=== PATIENT | female | born 1980 | race Caucasian/White ===

== ENCOUNTER 2018-05-15 14:06 | Emergency (ER) | payer SELFPAY | END 2018-05-15 14:48 | disposition home or self-care (01) | LOC: BURERS 14:06 | DX: J02.9 Acute pharyngitis, unspecified (principal); J04.0 Acute laryngitis | CPT/HCPCS: 99283 ==

== ENCOUNTER 2022-07-29 11:30 | Inpatient (IN) | payer OTHER ==
[2022-07-29] MEDS ORDERED: MEDROXYPROGESTERONE 150 MG/ML IM SCH (16:00)
[2022-07-29] MEDS ORDERED: Docusate 100 MG CAP PO PRN (16:34)
[2022-07-29] MEDS ORDERED: Ubrogepant [Ubrelvy] 50 MG Tablet PO PRN (16:51)
[2022-07-29] MEDS: HYDROcodone/Acetaminophen 10/325 mg Tablet PO PRN (16:51)
[2022-07-29] MEDS ORDERED: INHALE EA NARE PRN (17:00)
[2022-07-29] MEDS ORDERED: IPRATROPIUM 0.06% EA NARE SCH (17:00)
[2022-07-29] MEDS ORDERED: Senokot S 8.6-50 MG TAB PO PRN (17:00)
[2022-07-29] MEDS ORDERED: IPRATROPIUM 0.06% EA NARE PRN (17:00)
[2022-07-29] MEDS ORDERED: INHALE EA NARE SCH (17:00)
[2022-07-29] MEDS ORDERED: HYDROcodone/Acetaminophen 10/325 mg Tablet PO PRN ×2 (17:15)
[2022-07-29 17:37] LABS: SARS-CoV-2 NAA Rapid Test Not Detected (NotDetected)
[2022-07-29] MEDS: diphenhydrAMINE 25 MG CAP PO PRN (19:55)
[2022-07-29] MEDS: Topiramate 25 MG TAB PO SCH (20:02)
[2022-07-29] MEDS: Amitriptyline HCl 25 MG TAB PO SCH (20:02)
[2022-07-30] MEDS: Levothyroxine Sodium 25 MCG TAB PO SCH (05:16)
[2022-07-30] MEDS: Levothyroxine Sodium 112 MCG TAB PO SCH (05:16)
[2022-07-30] MEDS: HYDROcodone/Acetaminophen 10/325 mg Tablet PO PRN ×3 (05:18→20:03)
[2022-07-30] MEDS: diphenhydrAMINE 25 MG CAP PO PRN ×2 (05:19→14:42)
[2022-07-30] MEDS ORDERED: Non-Formulary Item 1 EACH (Esomeprazole Magnesium [Nexium] 40 MG Cap) PO SCH (08:00)
[2022-07-30] MEDS: Topiramate 25 MG TAB PO SCH ×2 (08:33→20:02)
[2022-07-30] MEDS: cefTRIAXone\\ROCEPHIN 2 GM in Sodium Chloride 0.9% 100 ML IVPB SCH (08:33)
[2022-07-30] MEDS: Furosemide 40 MG TAB PO SCH (08:34)
[2022-07-30] MEDS: predniSONE 20 MG TAB PO SCH ×2 (08:34→08:40)
[2022-07-30] MEDS: Trospium 20 MG TAB PO SCH ×2 (08:34→20:02)
[2022-07-30] MEDS: Azelastine 137 MCG/Spray 30 ML NS SCH (08:37)
[2022-07-30] MEDS ORDERED: CEFTRIAXONE SODIUM 2 GM IV SCH (09:00)
[2022-07-30] MEDS ORDERED: Meloxicam 7.5 MG TAB PO SCH (09:00)
[2022-07-30] MEDS: Triamcinolone 0.1% Cream 15 GM TUBE TOP PRN (11:52)
[2022-07-30] MEDS: Amitriptyline HCl 25 MG TAB PO SCH (20:02)
[2022-07-31] MEDS: Levothyroxine Sodium 112 MCG TAB PO SCH (05:31)
[2022-07-31] MEDS: Levothyroxine Sodium 25 MCG TAB PO SCH (05:31)
[2022-07-31] MEDS: HYDROcodone/Acetaminophen 10/325 mg Tablet PO PRN ×3 (05:31→20:44)
[2022-07-31] MEDS: diphenhydrAMINE 25 MG CAP PO PRN (05:32)
[2022-07-31] MEDS ORDERED: hydrOXYzine 25 MG TAB PO PRN (07:18)
[2022-07-31] MEDS: cefTRIAXone\\ROCEPHIN 2 GM in Sodium Chloride 0.9% 100 ML IVPB SCH (08:39)
[2022-07-31] MEDS: Azelastine 137 MCG/Spray 30 ML NS SCH (08:40)
[2022-07-31] MEDS: Trospium 20 MG TAB PO SCH ×2 (08:41→20:43)
[2022-07-31] MEDS: Furosemide 40 MG TAB PO SCH (08:41)
[2022-07-31] MEDS: Triamcinolone 0.1% Cream 15 GM TUBE TOP PRN (08:41)
[2022-07-31] MEDS: Topiramate 25 MG TAB PO SCH ×2 (08:41→20:43)
[2022-07-31] MEDS: Calcium Carbonate 500 MG ChewTAB PO PRN ×2 (15:20→18:09)
[2022-07-31] MEDS: Amitriptyline HCl 25 MG TAB PO SCH (20:43)
[2022-08-01 05:40] LABS: #Basophils 0.1 thou/uL (0.0-0.2); #Eosinphils 0.6 thou/uL (0.0-0.7); #Lymphocytes 3.3 thou/uL (1.20-3.40); #Monocytes 0.7 thou/uL (0.11-0.59); #Neutrophils 2.9 thou/uL (1.40-6.50); %Basophils 1.1 % (0.0-1.0); %Eosinophils 7.4 % (0.0-10.0); %Lymphocytes 43.4 % (21.0-51.0); %Neutrophils 39.1 % (42.0-75.0); Hemoglobin 11.6 g/dL (12.0-16.0); Mean Corpuscular HGB CONC 31.7 g/dL (32.0-36.0); Mean Corpuscular Volume 88.3 fl (78.0-98.0); Mean Platelet Volume 6.3 fL (7.4-10.4); Platelet Count 296 10x3/uL (130-400); RBC Distribution Width 14.8 % (11.5-14.5); Red Blood Cell (RBC) Count 4.13 mill/uL (4.20-5.40); White Blood Cell (WBC) Count 7.5 10x3/uL (4.8-10.8)
[2022-08-01] MEDS: Levothyroxine Sodium 25 MCG TAB PO SCH (05:42)
[2022-08-01] MEDS: Levothyroxine Sodium 112 MCG TAB PO SCH (05:43)
[2022-08-01 05:46] LABS: Anion Gap 16 mmol/L (10-20); BUN (Urea Nitrogen) 14 mg/dL (7.0-18.7); Calc. Creatinine Clearance 150 mL/min (70-130); Calcium 9.3 mg/dL (7.8-10.44); Carbon Dioxide 18 mmol/L (22-29); Chloride 109 mmol/L (98-107); Estimated GFR 88; Glucose 77 mg/dL (70-105); Potassium 3.9 mmol/L (3.5-5.1); Sodium 139 mmol/L (136-145)
[2022-08-01] MEDS: Furosemide 40 MG TAB PO SCH (08:28)
[2022-08-01] MEDS: Trospium 20 MG TAB PO SCH ×2 (08:28→20:22)
[2022-08-01] MEDS: Topiramate 25 MG TAB PO SCH ×2 (08:28→20:22)
[2022-08-01] MEDS: HYDROcodone/Acetaminophen 10/325 mg Tablet PO PRN ×3 (08:28→20:29)
[2022-08-01] MEDS: Azelastine 137 MCG/Spray 30 ML NS SCH (08:29)
[2022-08-01] MEDS: Triamcinolone 0.1% Cream 15 GM TUBE TOP PRN (08:30)
[2022-08-01] MEDS: cefTRIAXone\\ROCEPHIN 2 GM in Sodium Chloride 0.9% 100 ML IVPB SCH (09:06)
[2022-08-01] MEDS ORDERED: Non-Formulary Item 1 EACH (Cetirizine Hcl [All Day Allergy Relief] 10 MG Capsule) PO PRN (16:05)
[2022-08-01] MEDS: Calcium Carbonate 500 MG ChewTAB PO PRN (18:33)
[2022-08-01] MEDS: Amitriptyline HCl 25 MG TAB PO SCH (20:22)
[2022-08-02] MEDS: Levothyroxine Sodium 25 MCG TAB PO SCH (05:38)
[2022-08-02] MEDS: Levothyroxine Sodium 112 MCG TAB PO SCH (05:38)
[2022-08-02] MEDS: traMADol HCl 50 MG TAB PO PRN (05:45)
[2022-08-02] MEDS: cefTRIAXone\\ROCEPHIN 2 GM in Sodium Chloride 0.9% 100 ML IVPB SCH (08:53)
[2022-08-02] MEDS: Topiramate 25 MG TAB PO SCH ×2 (08:54→20:09)
[2022-08-02] MEDS: Furosemide 40 MG TAB PO SCH (08:54)
[2022-08-02] MEDS: Trospium 20 MG TAB PO SCH ×2 (08:54→20:10)
[2022-08-02] MEDS ORDERED: Non-Formulary Item 1 EACH (Multivit-Min/Iron/Folic/Lutein [Centrum Silver Women] 1 TABLET PO SCH (09:00)
[2022-08-02] MEDS ORDERED: [UNRECOGNIZED DRUG - MIXTURE] PO SCH (09:00)
[2022-08-02] MEDS: Triamcinolone 0.1% Cream 15 GM TUBE TOP PRN (09:14)
[2022-08-02] MEDS: Azelastine 137 MCG/Spray 30 ML NS SCH (09:14)
[2022-08-02] MEDS: HYDROcodone/Acetaminophen 10/325 mg Tablet PO PRN ×2 (09:32→16:07)
[2022-08-02] MEDS ORDERED: Loratadine 10 MG TAB PO PRN (10:14)
[2022-08-02] MEDS: ECHINACEA PO SCH ×2 (14:48→20:09)
[2022-08-02] MEDS: GOLDENSEAL PO SCH ×2 (14:48→20:09)
[2022-08-02] MEDS: diphenhydrAMINE 25 MG CAP PO PRN (17:46)
[2022-08-02] MEDS: Amitriptyline HCl 25 MG TAB PO SCH (20:15)
[2022-08-03] MEDS: Levothyroxine Sodium 25 MCG TAB PO SCH (05:42)
[2022-08-03] MEDS: Levothyroxine Sodium 112 MCG TAB PO SCH (05:42)
[2022-08-03] MEDS: traMADol HCl 50 MG TAB PO PRN (06:04)
[2022-08-03] MEDS: HYDROcodone/Acetaminophen 10/325 mg Tablet PO PRN ×3 (08:45→20:43)
[2022-08-03] MEDS: Calcium Carbonate 500 MG ChewTAB PO PRN ×2 (08:48→20:42)
[2022-08-03] MEDS ORDERED: PATIENT'S HOME MEDICATION EA NARE SCH (09:00)
[2022-08-03] MEDS: Trospium 20 MG TAB PO SCH ×2 (10:04→20:43)
[2022-08-03] MEDS: Multivitamin W/ Minerals 1 TAB PO SCH (10:04)
[2022-08-03] MEDS: Furosemide 40 MG TAB PO SCH (10:04)
[2022-08-03] MEDS: Topiramate 25 MG TAB PO SCH ×2 (10:05→20:43)
[2022-08-03] MEDS: cefTRIAXone\\ROCEPHIN 2 GM in Sodium Chloride 0.9% 100 ML IVPB SCH (10:05)
[2022-08-03] MEDS: CITRACAL CALCIUM PO SCH (10:07)
[2022-08-03] MEDS: [UNRECOGNIZED DRUG - OTHER] PO SCH (10:07)
[2022-08-03] MEDS: BIOTIN PO SCH (10:08)
[2022-08-03] MEDS: HAIR SKIN AND NAILS PO SCH (10:08)
[2022-08-03] MEDS: [UNRECOGNIZED DRUG - OTHER] PO SCH (10:08)
[2022-08-03] MEDS: CYANOCOBALAMIN PO SCH (10:08)
[2022-08-03] MEDS: TART CHERRY EXTRACT 1200 MG PO SCH (10:09)
[2022-08-03] MEDS: ECHINACEA PO SCH ×3 (10:10→20:43)
[2022-08-03] MEDS: GOLDENSEAL PO SCH ×3 (10:10→20:43)
[2022-08-03] MEDS: Azelastine 137 MCG/Spray 30 ML EA NARE SCH (10:11)
[2022-08-03] MEDS: diphenhydrAMINE 25 MG CAP PO PRN (11:40)
[2022-08-03] MEDS: Amitriptyline HCl 25 MG TAB PO SCH (20:43)
[2022-08-04] MEDS: Levothyroxine Sodium 112 MCG TAB PO SCH (05:45)
[2022-08-04] MEDS: Levothyroxine Sodium 25 MCG TAB PO SCH (05:46)
[2022-08-04] MEDS: cefTRIAXone\\ROCEPHIN 2 GM in Sodium Chloride 0.9% 100 ML IVPB SCH (08:19)
[2022-08-04] MEDS: Trospium 20 MG TAB PO SCH ×2 (08:20→21:35)
[2022-08-04] MEDS: Topiramate 25 MG TAB PO SCH ×2 (08:20→21:35)
[2022-08-04] MEDS: Multivitamin W/ Minerals 1 TAB PO SCH (08:21)
[2022-08-04] MEDS: Furosemide 40 MG TAB PO SCH (08:21)
[2022-08-04] MEDS: HAIR SKIN AND NAILS PO SCH (08:29)
[2022-08-04] MEDS: BIOTIN PO SCH (08:29)
[2022-08-04] MEDS: HYDROcodone/Acetaminophen 10/325 mg Tablet PO PRN ×3 (08:35→22:00)
[2022-08-04] MEDS: CITRACAL CALCIUM PO SCH (08:41)
[2022-08-04] MEDS: [UNRECOGNIZED DRUG - OTHER] PO SCH (08:41)
[2022-08-04] MEDS: Azelastine 137 MCG/Spray 30 ML EA NARE SCH (08:42)
[2022-08-04] MEDS: TART CHERRY EXTRACT 1200 MG PO SCH (08:44)
[2022-08-04] MEDS: [UNRECOGNIZED DRUG - OTHER] PO SCH (08:44)
[2022-08-04] MEDS: GOLDENSEAL PO SCH ×3 (08:44→21:36)
[2022-08-04] MEDS: CYANOCOBALAMIN PO SCH (08:44)
[2022-08-04] MEDS: ECHINACEA PO SCH ×3 (08:44→21:36)
[2022-08-04] MEDS: traMADol HCl 50 MG TAB PO PRN (12:48)
[2022-08-04] MEDS: Triamcinolone 0.1% Cream 15 GM TUBE TOP PRN (12:52)
[2022-08-04] MEDS: diphenhydrAMINE 25 MG CAP PO PRN (15:55)
[2022-08-04] MEDS: Amitriptyline HCl 25 MG TAB PO SCH (21:35)
[2022-08-05] MEDS: Levothyroxine Sodium 112 MCG TAB PO SCH (05:15)
[2022-08-05] MEDS: Levothyroxine Sodium 25 MCG TAB PO SCH (05:15)
[2022-08-05] MEDS: HYDROcodone/Acetaminophen 10/325 mg Tablet PO PRN ×3 (05:26→19:41)
[2022-08-05] MEDS: cefTRIAXone\\ROCEPHIN 2 GM in Sodium Chloride 0.9% 100 ML IVPB SCH (09:10)
[2022-08-05] MEDS: Topiramate 25 MG TAB PO SCH ×2 (09:11→21:43)
[2022-08-05] MEDS: Furosemide 40 MG TAB PO SCH (09:12)
[2022-08-05] MEDS: Trospium 20 MG TAB PO SCH ×2 (09:12→21:44)
[2022-08-05] MEDS: Multivitamin W/ Minerals 1 TAB PO SCH (09:12)
[2022-08-05] MEDS: Azelastine 137 MCG/Spray 30 ML EA NARE SCH (09:16)
[2022-08-05] MEDS: CITRACAL CALCIUM PO SCH (09:18)
[2022-08-05] MEDS: [UNRECOGNIZED DRUG - OTHER] PO SCH (09:18)
[2022-08-05] MEDS: BIOTIN PO SCH (09:19)
[2022-08-05] MEDS: HAIR SKIN AND NAILS PO SCH (09:19)
[2022-08-05] MEDS: TART CHERRY EXTRACT 1200 MG PO SCH (09:19)
[2022-08-05] MEDS: CYANOCOBALAMIN PO SCH (09:20)
[2022-08-05] MEDS: [UNRECOGNIZED DRUG - OTHER] PO SCH (09:20)
[2022-08-05] MEDS: ECHINACEA PO SCH ×3 (09:21→23:04)
[2022-08-05] MEDS: GOLDENSEAL PO SCH ×3 (09:21→23:04)
[2022-08-05] MEDS: Triamcinolone 0.1% Cream 15 GM TUBE TOP PRN (09:22)
[2022-08-05] MEDS: traMADol HCl 50 MG TAB PO PRN (10:36)
[2022-08-05] MEDS: Calcium Carbonate 500 MG ChewTAB PO PRN (19:41)
[2022-08-05] MEDS: Amitriptyline HCl 25 MG TAB PO SCH (21:43)
[2022-08-06] MEDS: Levothyroxine Sodium 112 MCG TAB PO SCH (05:40)
[2022-08-06] MEDS: Levothyroxine Sodium 25 MCG TAB PO SCH (05:40)
[2022-08-06] MEDS: HYDROcodone/Acetaminophen 10/325 mg Tablet PO PRN ×2 (05:42→16:45)
[2022-08-06] MEDS: cefTRIAXone\\ROCEPHIN 2 GM in Sodium Chloride 0.9% 100 ML IVPB SCH (09:35)
[2022-08-06] MEDS: Triamcinolone 0.1% Cream 15 GM TUBE TOP PRN (09:36)
[2022-08-06] MEDS: HAIR SKIN AND NAILS PO SCH (09:37)
[2022-08-06] MEDS: [UNRECOGNIZED DRUG - OTHER] PO SCH (09:37)
[2022-08-06] MEDS: Azelastine 137 MCG/Spray 30 ML EA NARE SCH (09:37)
[2022-08-06] MEDS: CITRACAL CALCIUM PO SCH (09:37)
[2022-08-06] MEDS: BIOTIN PO SCH (09:37)
[2022-08-06] MEDS: [UNRECOGNIZED DRUG - OTHER] PO SCH (09:38)
[2022-08-06] MEDS: TART CHERRY EXTRACT 1200 MG PO SCH (09:38)
[2022-08-06] MEDS: CYANOCOBALAMIN PO SCH (09:38)
[2022-08-06] MEDS: Trospium 20 MG TAB PO SCH ×2 (09:41→20:57)
[2022-08-06] MEDS: Topiramate 25 MG TAB PO SCH ×2 (09:41→20:57)
[2022-08-06] MEDS: Furosemide 40 MG TAB PO SCH (09:42)
[2022-08-06] MEDS: Multivitamin W/ Minerals 1 TAB PO SCH (09:42)
[2022-08-06] MEDS: GOLDENSEAL PO SCH ×3 (09:46→20:57)
[2022-08-06] MEDS: ECHINACEA PO SCH ×3 (09:46→20:57)
[2022-08-06] MEDS: Prochlorperazine Maleate 5 MG TAB PO PRN (10:02)
[2022-08-06] MEDS: Calcium Carbonate 500 MG ChewTAB PO PRN (19:21)
[2022-08-06] MEDS: Amitriptyline HCl 25 MG TAB PO SCH (20:57)
[2022-08-06] MEDS: traMADol HCl 50 MG TAB PO PRN (21:34)
[2022-08-07] MEDS: Levothyroxine Sodium 25 MCG TAB PO SCH (06:41)
[2022-08-07] MEDS: Levothyroxine Sodium 112 MCG TAB PO SCH (06:42)
[2022-08-07] MEDS: HYDROcodone/Acetaminophen 10/325 mg Tablet PO PRN ×3 (06:44→21:08)
[2022-08-07] MEDS: cefTRIAXone\\ROCEPHIN 2 GM in Sodium Chloride 0.9% 100 ML IVPB SCH (09:29)
[2022-08-07] MEDS: Trospium 20 MG TAB PO SCH ×2 (09:31→21:01)
[2022-08-07] MEDS: Topiramate 25 MG TAB PO SCH ×2 (09:31→21:01)
[2022-08-07] MEDS: Furosemide 40 MG TAB PO SCH (09:31)
[2022-08-07] MEDS: Multivitamin W/ Minerals 1 TAB PO SCH (09:31)
[2022-08-07] MEDS: Triamcinolone 0.1% Cream 15 GM TUBE TOP PRN (09:36)
[2022-08-07] MEDS: BIOTIN PO SCH (09:36)
[2022-08-07] MEDS: HAIR SKIN AND NAILS PO SCH (09:36)
[2022-08-07] MEDS: TART CHERRY EXTRACT 1200 MG PO SCH (09:36)
[2022-08-07] MEDS: Azelastine 137 MCG/Spray 30 ML EA NARE SCH (09:36)
[2022-08-07] MEDS: [UNRECOGNIZED DRUG - OTHER] PO SCH (09:36)
[2022-08-07] MEDS: CITRACAL CALCIUM PO SCH (09:36)
[2022-08-07] MEDS: [UNRECOGNIZED DRUG - OTHER] PO SCH (09:36)
[2022-08-07] MEDS: CYANOCOBALAMIN PO SCH (09:36)
[2022-08-07] MEDS: ECHINACEA PO SCH ×3 (09:37→21:00)
[2022-08-07] MEDS: GOLDENSEAL PO SCH ×3 (09:37→21:00)
[2022-08-07] MEDS: traMADol HCl 50 MG TAB PO PRN (18:37)
[2022-08-07] MEDS: Amitriptyline HCl 25 MG TAB PO SCH (21:00)
[2022-08-08] MEDS: Levothyroxine Sodium 25 MCG TAB PO SCH (05:15)
[2022-08-08] MEDS: Levothyroxine Sodium 112 MCG TAB PO SCH (05:15)
[2022-08-08] MEDS: HYDROcodone/Acetaminophen 10/325 mg Tablet PO PRN ×3 (05:42→18:01)
[2022-08-08 05:56] LABS: #Basophils 0.1 thou/uL (0.0-0.2); #Eosinphils 0.7 thou/uL (0.0-0.7); #Monocytes 0.6 thou/uL (0.11-0.59); #Neutrophils 3.5 thou/uL (1.40-6.50); %Basophils 1.1 % (0.0-1.0); %Eosinophils 8.8 % (0.0-10.0); %Lymphocytes 38.6 % (21.0-51.0); %Monocytes 7.3 % (0.0-10.0); %Neutrophils 44.1 % (42.0-75.0); Hemoglobin 10.8 g/dL (12.0-16.0); Mean Corpuscular HGB CONC 33.2 g/dL (32.0-36.0); Mean Corpuscular Hemoglobin 28.6 pg (27.0-31.0); Mean Corpuscular Volume 86.1 fl (78.0-98.0); Mean Platelet Volume 6.3 fL (7.4-10.4); Platelet Count 340 10x3/uL (130-400); RBC Distribution Width 15.4 % (11.5-14.5); Red Blood Cell (RBC) Count 3.78 mill/uL (4.20-5.40); White Blood Cell (WBC) Count 7.8 10x3/uL (4.8-10.8)
[2022-08-08 06:11] LABS: Anion Gap 12 mmol/L (10-20); BUN (Urea Nitrogen) 13 mg/dL (7.0-18.7); CRP (Inflammatory) 1.81 mg/dL (= or < 0.5); Calc. Creatinine Clearance 152 mL/min (70-130); Calcium 8.7 mg/dL (7.8-10.44); Carbon Dioxide 23 mmol/L (22-29); Chloride 109 mmol/L (98-107); Estimated GFR 90; Glucose 97 mg/dL (70-105); Sodium 141 mmol/L (136-145)
[2022-08-08] MEDS: diphenhydrAMINE 25 MG CAP PO PRN (06:22)
[2022-08-08] MEDS: Furosemide 40 MG TAB PO SCH (08:14)
[2022-08-08] MEDS: Potassium Chloride 20 MEQ TAB PO SCH (08:14)
[2022-08-08] MEDS: Multivitamin W/ Minerals 1 TAB PO SCH (08:14)
[2022-08-08] MEDS: Trospium 20 MG TAB PO SCH ×2 (08:15→21:03)
[2022-08-08] MEDS: Topiramate 25 MG TAB PO SCH ×2 (08:15→21:03)
[2022-08-08] MEDS: cefTRIAXone\\ROCEPHIN 2 GM in Sodium Chloride 0.9% 100 ML IVPB SCH (08:15)
[2022-08-08] MEDS: Azelastine 137 MCG/Spray 30 ML EA NARE SCH (08:16)
[2022-08-08] MEDS: CYANOCOBALAMIN PO SCH (08:17)
[2022-08-08] MEDS: [UNRECOGNIZED DRUG - OTHER] PO SCH (08:17)
[2022-08-08] MEDS: CITRACAL CALCIUM PO SCH (08:18)
[2022-08-08] MEDS: [UNRECOGNIZED DRUG - OTHER] PO SCH (08:18)
[2022-08-08] MEDS: BIOTIN PO SCH (08:19)
[2022-08-08] MEDS: ECHINACEA PO SCH ×3 (08:19→21:37)
[2022-08-08] MEDS: GOLDENSEAL PO SCH ×3 (08:19→21:37)
[2022-08-08] MEDS: HAIR SKIN AND NAILS PO SCH (08:19)
[2022-08-08] MEDS: TART CHERRY EXTRACT 1200 MG PO SCH (08:20)
[2022-08-08] MEDS: Calcium Carbonate 500 MG ChewTAB PO PRN (20:03)
[2022-08-08] MEDS: traMADol HCl 50 MG TAB PO PRN (21:02)
[2022-08-08] MEDS: Amitriptyline HCl 25 MG TAB PO SCH (21:04)
[2022-08-09] MEDS: Levothyroxine Sodium 112 MCG TAB PO SCH (05:01)
[2022-08-09] MEDS: Levothyroxine Sodium 25 MCG TAB PO SCH (05:01)
[2022-08-09] MEDS: HYDROcodone/Acetaminophen 10/325 mg Tablet PO PRN ×3 (05:05→21:44)
[2022-08-09] MEDS: Topiramate 25 MG TAB PO SCH ×2 (08:56→21:46)
[2022-08-09] MEDS: Multivitamin W/ Minerals 1 TAB PO SCH (08:56)
[2022-08-09] MEDS: Furosemide 40 MG TAB PO SCH (08:56)
[2022-08-09] MEDS: Potassium Chloride 20 MEQ TAB PO SCH (08:56)
[2022-08-09] MEDS: Triple Antibiotic Oint 1 GM Packet TOP SCH (08:56)
[2022-08-09] MEDS: Trospium 20 MG TAB PO SCH ×2 (08:57→21:45)
[2022-08-09] MEDS: [UNRECOGNIZED DRUG - OTHER] PO SCH (08:58)
[2022-08-09] MEDS: CITRACAL CALCIUM PO SCH (08:58)
[2022-08-09] MEDS: Azelastine 137 MCG/Spray 30 ML EA NARE SCH (08:59)
[2022-08-09] MEDS: GOLDENSEAL PO SCH ×3 (08:59→21:55)
[2022-08-09] MEDS: ECHINACEA PO SCH ×3 (08:59→21:55)
[2022-08-09] MEDS: BIOTIN PO SCH (09:00)
[2022-08-09] MEDS: HAIR SKIN AND NAILS PO SCH (09:00)
[2022-08-09] MEDS: TART CHERRY EXTRACT 1200 MG PO SCH (09:00)
[2022-08-09] MEDS: [UNRECOGNIZED DRUG - OTHER] PO SCH (09:01)
[2022-08-09] MEDS: CYANOCOBALAMIN PO SCH (09:01)
[2022-08-09] MEDS: cefTRIAXone\\ROCEPHIN 2 GM in Sodium Chloride 0.9% 100 ML IVPB SCH (09:05)
[2022-08-09] MEDS: traMADol HCl 50 MG TAB PO PRN (17:55)
[2022-08-09] MEDS: Calcium Carbonate 500 MG ChewTAB PO PRN (21:44)
[2022-08-09] MEDS: Amitriptyline HCl 25 MG TAB PO SCH (21:46)
[2022-08-10] MEDS: Levothyroxine Sodium 112 MCG TAB PO SCH (05:47)
[2022-08-10] MEDS: Levothyroxine Sodium 25 MCG TAB PO SCH (05:47)
[2022-08-10] MEDS: Triple Antibiotic Oint 1 GM Packet TOP SCH (09:00)
[2022-08-10] MEDS ORDERED: Docusate 100 MG CAP PO PRN (09:08)
[2022-08-10] MEDS: TART CHERRY EXTRACT 1200 MG PO SCH (09:14)
[2022-08-10] MEDS: BIOTIN PO SCH (09:14)
[2022-08-10] MEDS: CYANOCOBALAMIN PO SCH (09:14)
[2022-08-10] MEDS: [UNRECOGNIZED DRUG - OTHER] PO SCH (09:14)
[2022-08-10] MEDS: ECHINACEA PO SCH ×3 (09:14→20:22)
[2022-08-10] MEDS: HAIR SKIN AND NAILS PO SCH (09:14)
[2022-08-10] MEDS: [UNRECOGNIZED DRUG - OTHER] PO SCH (09:14)
[2022-08-10] MEDS: CITRACAL CALCIUM PO SCH (09:14)
[2022-08-10] MEDS: GOLDENSEAL PO SCH ×3 (09:14→20:22)
[2022-08-10] MEDS: Azelastine 137 MCG/Spray 30 ML EA NARE SCH (09:15)
[2022-08-10] MEDS: Furosemide 40 MG TAB PO SCH (09:16)
[2022-08-10] MEDS: Topiramate 25 MG TAB PO SCH ×2 (09:16→20:23)
[2022-08-10] MEDS: Potassium Chloride 20 MEQ TAB PO SCH (09:16)
[2022-08-10] MEDS: Multivitamin W/ Minerals 1 TAB PO SCH (09:16)
[2022-08-10] MEDS: Trospium 20 MG TAB PO SCH ×2 (09:16→20:23)
[2022-08-10] MEDS: cefTRIAXone\\ROCEPHIN 2 GM in Sodium Chloride 0.9% 100 ML IVPB SCH (09:17)
[2022-08-10] MEDS: HYDROcodone/Acetaminophen 10/325 mg Tablet PO PRN ×2 (10:16→20:23)
[2022-08-10] MEDS: Calcium Carbonate 500 MG ChewTAB PO PRN (10:17)
[2022-08-10] MEDS: Amitriptyline HCl 25 MG TAB PO SCH (20:23)
[2022-08-11] MEDS: Levothyroxine Sodium 112 MCG TAB PO SCH (05:14)
[2022-08-11] MEDS: Levothyroxine Sodium 25 MCG TAB PO SCH (05:14)
[2022-08-11] MEDS: HYDROcodone/Acetaminophen 10/325 mg Tablet PO PRN ×3 (05:20→20:38)
[2022-08-11] MEDS: Azelastine 137 MCG/Spray 30 ML EA NARE SCH (08:41)
[2022-08-11] MEDS: BIOTIN PO SCH (08:41)
[2022-08-11] MEDS: [UNRECOGNIZED DRUG - OTHER] PO SCH (08:41)
[2022-08-11] MEDS: CITRACAL CALCIUM PO SCH (08:41)
[2022-08-11] MEDS: HAIR SKIN AND NAILS PO SCH (08:41)
[2022-08-11] MEDS: [UNRECOGNIZED DRUG - OTHER] PO SCH (08:42)
[2022-08-11] MEDS: GOLDENSEAL PO SCH ×3 (08:42→20:43)
[2022-08-11] MEDS: ECHINACEA PO SCH ×3 (08:42→20:43)
[2022-08-11] MEDS: CYANOCOBALAMIN PO SCH (08:42)
[2022-08-11] MEDS: TART CHERRY EXTRACT 1200 MG PO SCH (08:42)
[2022-08-11] MEDS: Topiramate 25 MG TAB PO SCH ×2 (08:43→20:38)
[2022-08-11] MEDS: Multivitamin W/ Minerals 1 TAB PO SCH (08:44)
[2022-08-11] MEDS: Trospium 20 MG TAB PO SCH ×2 (08:44→20:38)
[2022-08-11] MEDS: Furosemide 40 MG TAB PO SCH (08:44)
[2022-08-11] MEDS: Potassium Chloride 20 MEQ TAB PO SCH (08:44)
[2022-08-11] MEDS: Triple Antibiotic Oint 1 GM Packet TOP SCH (08:44)
[2022-08-11] MEDS: cefTRIAXone\\ROCEPHIN 2 GM in Sodium Chloride 0.9% 100 ML IVPB SCH (08:45)
[2022-08-11] MEDS: Prochlorperazine Maleate 5 MG TAB PO PRN (17:49)
[2022-08-11] MEDS: Amitriptyline HCl 25 MG TAB PO SCH (20:38)
[2022-08-12] MEDS: Levothyroxine Sodium 25 MCG TAB PO SCH (05:25)
[2022-08-12] MEDS: Levothyroxine Sodium 112 MCG TAB PO SCH (05:25)
[2022-08-12] MEDS: HYDROcodone/Acetaminophen 10/325 mg Tablet PO PRN ×3 (05:25→20:16)
[2022-08-12] MEDS: Potassium Chloride 20 MEQ TAB PO SCH (08:54)
[2022-08-12] MEDS: Topiramate 25 MG TAB PO SCH ×2 (08:55→20:15)
[2022-08-12] MEDS: Multivitamin W/ Minerals 1 TAB PO SCH (08:56)
[2022-08-12] MEDS: Trospium 20 MG TAB PO SCH ×2 (08:56→20:15)
[2022-08-12] MEDS: Furosemide 40 MG TAB PO SCH (08:56)
[2022-08-12] MEDS: ECHINACEA PO SCH ×3 (08:58→20:15)
[2022-08-12] MEDS: BIOTIN PO SCH (08:58)
[2022-08-12] MEDS: TART CHERRY EXTRACT 1200 MG PO SCH (08:58)
[2022-08-12] MEDS: GOLDENSEAL PO SCH ×3 (08:58→20:15)
[2022-08-12] MEDS: HAIR SKIN AND NAILS PO SCH (08:58)
[2022-08-12] MEDS: Azelastine 137 MCG/Spray 30 ML EA NARE SCH (08:59)
[2022-08-12] MEDS: CITRACAL CALCIUM PO SCH (08:59)
[2022-08-12] MEDS: [UNRECOGNIZED DRUG - OTHER] PO SCH (08:59)
[2022-08-12] MEDS: [UNRECOGNIZED DRUG - OTHER] PO SCH (08:59)
[2022-08-12] MEDS: CYANOCOBALAMIN PO SCH (08:59)
[2022-08-12] MEDS: cefTRIAXone\\ROCEPHIN 2 GM in Sodium Chloride 0.9% 100 ML IVPB SCH (09:00)
[2022-08-12] MEDS: Triple Antibiotic Oint 1 GM Packet TOP SCH (09:01)
[2022-08-12] MEDS: Triamcinolone 0.1% Cream 15 GM TUBE TOP PRN (16:48)
[2022-08-12] MEDS: Amitriptyline HCl 25 MG TAB PO SCH (20:15)
[2022-08-13] MEDS: Levothyroxine Sodium 112 MCG TAB PO SCH (05:54)
[2022-08-13] MEDS: Levothyroxine Sodium 25 MCG TAB PO SCH (05:54)
[2022-08-13] MEDS: ECHINACEA PO SCH ×3 (08:14→20:26)
[2022-08-13] MEDS: GOLDENSEAL PO SCH ×3 (08:14→20:26)
[2022-08-13] MEDS: TART CHERRY EXTRACT 1200 MG PO SCH (08:15)
[2022-08-13] MEDS: CITRACAL CALCIUM PO SCH (08:15)
[2022-08-13] MEDS: [UNRECOGNIZED DRUG - OTHER] PO SCH (08:15)
[2022-08-13] MEDS: BIOTIN PO SCH (08:16)
[2022-08-13] MEDS: HAIR SKIN AND NAILS PO SCH (08:16)
[2022-08-13] MEDS: CYANOCOBALAMIN PO SCH (08:16)
[2022-08-13] MEDS: [UNRECOGNIZED DRUG - OTHER] PO SCH (08:16)
[2022-08-13] MEDS: Azelastine 137 MCG/Spray 30 ML EA NARE SCH (08:17)
[2022-08-13] MEDS: Trospium 20 MG TAB PO SCH ×2 (08:19→20:25)
[2022-08-13] MEDS: Multivitamin W/ Minerals 1 TAB PO SCH (08:19)
[2022-08-13] MEDS: Furosemide 40 MG TAB PO SCH (08:19)
[2022-08-13] MEDS: Potassium Chloride 20 MEQ TAB PO SCH (08:19)
[2022-08-13] MEDS: Topiramate 25 MG TAB PO SCH ×2 (08:19→20:25)
[2022-08-13] MEDS: Triple Antibiotic Oint 1 GM Packet TOP SCH (08:19)
[2022-08-13] MEDS: cefTRIAXone\\ROCEPHIN 2 GM in Sodium Chloride 0.9% 100 ML IVPB SCH (08:20)
[2022-08-13] MEDS: HYDROcodone/Acetaminophen 10/325 mg Tablet PO PRN ×3 (08:29→23:35)
[2022-08-13] MEDS ORDERED: Lidocaine Viscous Sol 2% 15 ml UD Cup SSP PRN (17:30)
[2022-08-13] MEDS: Amitriptyline HCl 25 MG TAB PO SCH (20:26)
[2022-08-14] MEDS: Levothyroxine Sodium 112 MCG TAB PO SCH (05:40)
[2022-08-14] MEDS: Levothyroxine Sodium 25 MCG TAB PO SCH (05:40)
[2022-08-14] MEDS: TART CHERRY EXTRACT 1200 MG PO SCH (08:55)
[2022-08-14] MEDS: HAIR SKIN AND NAILS PO SCH (08:55)
[2022-08-14] MEDS: CYANOCOBALAMIN PO SCH (08:55)
[2022-08-14] MEDS: [UNRECOGNIZED DRUG - OTHER] PO SCH (08:55)
[2022-08-14] MEDS: BIOTIN PO SCH (08:55)
[2022-08-14] MEDS: [UNRECOGNIZED DRUG - OTHER] PO SCH (08:56)
[2022-08-14] MEDS: CITRACAL CALCIUM PO SCH (08:56)
[2022-08-14] MEDS: ECHINACEA PO SCH ×3 (08:56→19:49)
[2022-08-14] MEDS: GOLDENSEAL PO SCH ×3 (08:56→19:49)
[2022-08-14] MEDS: Azelastine 137 MCG/Spray 30 ML EA NARE SCH (08:57)
[2022-08-14] MEDS: Potassium Chloride 20 MEQ TAB PO SCH (08:57)
[2022-08-14] MEDS: Trospium 20 MG TAB PO SCH ×2 (08:58→20:01)
[2022-08-14] MEDS: Triple Antibiotic Oint 1 GM Packet TOP SCH (08:58)
[2022-08-14] MEDS: Multivitamin W/ Minerals 1 TAB PO SCH (08:58)
[2022-08-14] MEDS: Topiramate 25 MG TAB PO SCH ×2 (08:58→19:48)
[2022-08-14] MEDS: Furosemide 40 MG TAB PO SCH (08:58)
[2022-08-14] MEDS: cefTRIAXone\\ROCEPHIN 2 GM in Sodium Chloride 0.9% 100 ML IVPB SCH (09:00)
[2022-08-14] MEDS: Calcium Carbonate 500 MG ChewTAB PO PRN ×2 (09:11→19:48)
[2022-08-14] MEDS: HYDROcodone/Acetaminophen 10/325 mg Tablet PO PRN ×2 (09:11→15:23)
[2022-08-14] MEDS: Amitriptyline HCl 25 MG TAB PO SCH (19:48)
[2022-08-14] MEDS: Triamcinolone 0.1% Cream 15 GM TUBE TOP PRN (19:50)
[2022-08-15] MEDS: Levothyroxine Sodium 112 MCG TAB PO SCH (05:26)
[2022-08-15] MEDS: Levothyroxine Sodium 25 MCG TAB PO SCH (05:26)
[2022-08-15] MEDS: Acetaminophen 325 MG TAB PO PRN (05:37)
[2022-08-15] MEDS: traMADol HCl 50 MG TAB PO PRN (05:38)
[2022-08-15] MEDS: [UNRECOGNIZED DRUG - OTHER] PO SCH (08:34)
[2022-08-15] MEDS: ECHINACEA PO SCH ×3 (08:34→21:11)
[2022-08-15] MEDS: CITRACAL CALCIUM PO SCH (08:34)
[2022-08-15] MEDS: GOLDENSEAL PO SCH ×3 (08:34→21:11)
[2022-08-15] MEDS: Azelastine 137 MCG/Spray 30 ML EA NARE SCH (08:35)
[2022-08-15] MEDS: CYANOCOBALAMIN PO SCH (08:36)
[2022-08-15] MEDS: HAIR SKIN AND NAILS PO SCH (08:36)
[2022-08-15] MEDS: [UNRECOGNIZED DRUG - OTHER] PO SCH (08:36)
[2022-08-15] MEDS: BIOTIN PO SCH (08:36)
[2022-08-15] MEDS: TART CHERRY EXTRACT 1200 MG PO SCH (08:37)
[2022-08-15] MEDS: Potassium Chloride 20 MEQ TAB PO SCH (08:38)
[2022-08-15] MEDS: Topiramate 25 MG TAB PO SCH ×2 (08:38→21:03)
[2022-08-15] MEDS: Furosemide 40 MG TAB PO SCH (08:38)
[2022-08-15] MEDS: Multivitamin W/ Minerals 1 TAB PO SCH (08:38)
[2022-08-15] MEDS: Trospium 20 MG TAB PO SCH ×2 (08:38→21:04)
[2022-08-15] MEDS: cefTRIAXone\\ROCEPHIN 2 GM in Sodium Chloride 0.9% 100 ML IVPB SCH (08:38)
[2022-08-15] MEDS: HYDROcodone/Acetaminophen 10/325 mg Tablet PO PRN ×2 (10:01→18:37)
[2022-08-15] MEDS ORDERED: Amitriptyline HCl 25 MG TAB PO SCH (21:15)
[2022-08-16] MEDS: HYDROcodone/Acetaminophen 10/325 mg Tablet PO PRN ×3 (00:37→18:14)
[2022-08-16] MEDS: diphenhydrAMINE 25 MG CAP PO PRN (03:43)
[2022-08-16] MEDS: Levothyroxine Sodium 25 MCG TAB PO SCH (05:15)
[2022-08-16] MEDS: Levothyroxine Sodium 112 MCG TAB PO SCH (05:15)
[2022-08-16] MEDS: [UNRECOGNIZED DRUG - OTHER] PO SCH (08:17)
[2022-08-16] MEDS: CITRACAL CALCIUM PO SCH (08:17)
[2022-08-16] MEDS: GOLDENSEAL PO SCH ×3 (08:18→20:41)
[2022-08-16] MEDS: BIOTIN PO SCH (08:18)
[2022-08-16] MEDS: ECHINACEA PO SCH ×3 (08:18→20:41)
[2022-08-16] MEDS: [UNRECOGNIZED DRUG - OTHER] PO SCH (08:18)
[2022-08-16] MEDS: HAIR SKIN AND NAILS PO SCH (08:18)
[2022-08-16] MEDS: CYANOCOBALAMIN PO SCH (08:18)
[2022-08-16] MEDS: TART CHERRY EXTRACT 1200 MG PO SCH (08:19)
[2022-08-16] MEDS: Potassium Chloride 20 MEQ TAB PO SCH (08:19)
[2022-08-16] MEDS: Furosemide 40 MG TAB PO SCH (08:20)
[2022-08-16] MEDS: Multivitamin W/ Minerals 1 TAB PO SCH (08:20)
[2022-08-16] MEDS: Trospium 20 MG TAB PO SCH ×2 (08:20→20:38)
[2022-08-16] MEDS: Topiramate 25 MG TAB PO SCH ×2 (08:20→20:39)
[2022-08-16] MEDS: Azelastine 137 MCG/Spray 30 ML EA NARE SCH (08:21)
[2022-08-16] MEDS: cefTRIAXone\\ROCEPHIN 2 GM in Sodium Chloride 0.9% 100 ML IVPB SCH (08:23)
[2022-08-16] MEDS: Amitriptyline HCl 25 MG TAB PO SCH (20:39)
[2022-08-17] MEDS: HYDROcodone/Acetaminophen 10/325 mg Tablet PO PRN ×3 (00:33→17:19)
[2022-08-17] MEDS: Levothyroxine Sodium 25 MCG TAB PO SCH (05:07)
[2022-08-17] MEDS: Levothyroxine Sodium 112 MCG TAB PO SCH (05:07)
[2022-08-17] MEDS: Topiramate 25 MG TAB PO SCH ×2 (08:49→21:34)
[2022-08-17] MEDS: Trospium 20 MG TAB PO SCH ×2 (08:49→21:33)
[2022-08-17] MEDS: Potassium Chloride 20 MEQ TAB PO SCH (08:49)
[2022-08-17] MEDS: CITRACAL CALCIUM PO SCH (08:49)
[2022-08-17] MEDS: [UNRECOGNIZED DRUG - OTHER] PO SCH (08:49)
[2022-08-17] MEDS: Furosemide 40 MG TAB PO SCH (08:50)
[2022-08-17] MEDS: Multivitamin W/ Minerals 1 TAB PO SCH (08:50)
[2022-08-17] MEDS: Azelastine 137 MCG/Spray 30 ML EA NARE SCH (08:50)
[2022-08-17] MEDS: CYANOCOBALAMIN PO SCH (08:51)
[2022-08-17] MEDS: [UNRECOGNIZED DRUG - OTHER] PO SCH (08:51)
[2022-08-17] MEDS: HAIR SKIN AND NAILS PO SCH (08:51)
[2022-08-17] MEDS: BIOTIN PO SCH (08:51)
[2022-08-17] MEDS: GOLDENSEAL PO SCH ×3 (08:52→21:50)
[2022-08-17] MEDS: ECHINACEA PO SCH ×3 (08:52→21:50)
[2022-08-17] MEDS: TART CHERRY EXTRACT 1200 MG PO SCH (08:53)
[2022-08-17] MEDS: cefTRIAXone\\ROCEPHIN 2 GM in Sodium Chloride 0.9% 100 ML IVPB SCH (09:04)
[2022-08-17] MEDS: Calcium Carbonate 500 MG ChewTAB PO PRN (19:24)
[2022-08-17] MEDS: Amitriptyline HCl 25 MG TAB PO SCH (21:33)
[2022-08-18] MEDS: Levothyroxine Sodium 112 MCG TAB PO SCH (06:25)
[2022-08-18] MEDS: Levothyroxine Sodium 25 MCG TAB PO SCH (06:26)
[2022-08-18] MEDS: Trospium 20 MG TAB PO SCH ×2 (08:47→21:07)
[2022-08-18] MEDS: Potassium Chloride 20 MEQ TAB PO SCH (08:47)
[2022-08-18] MEDS: Topiramate 25 MG TAB PO SCH ×2 (08:47→21:07)
[2022-08-18] MEDS: Multivitamin W/ Minerals 1 TAB PO SCH (08:48)
[2022-08-18] MEDS: Furosemide 40 MG TAB PO SCH (08:48)
[2022-08-18] MEDS: cefTRIAXone\\ROCEPHIN 2 GM in Sodium Chloride 0.9% 100 ML IVPB SCH (08:49)
[2022-08-18] MEDS: HAIR SKIN AND NAILS PO SCH (08:50)
[2022-08-18] MEDS: BIOTIN PO SCH (08:50)
[2022-08-18] MEDS: CITRACAL CALCIUM PO SCH (08:52)
[2022-08-18] MEDS: [UNRECOGNIZED DRUG - OTHER] PO SCH (08:52)
[2022-08-18] MEDS: TART CHERRY EXTRACT 1200 MG PO SCH (08:52)
[2022-08-18] MEDS: CYANOCOBALAMIN PO SCH (08:52)
[2022-08-18] MEDS: GOLDENSEAL PO SCH ×3 (08:52→22:28)
[2022-08-18] MEDS: ECHINACEA PO SCH ×3 (08:52→22:28)
[2022-08-18] MEDS: [UNRECOGNIZED DRUG - OTHER] PO SCH (08:52)
[2022-08-18] MEDS: Azelastine 137 MCG/Spray 30 ML EA NARE SCH (08:52)
[2022-08-18] MEDS: Calcium Carbonate 500 MG ChewTAB PO PRN (09:46)
[2022-08-18] MEDS: HYDROcodone/Acetaminophen 10/325 mg Tablet PO PRN ×2 (09:46→18:43)
[2022-08-18] MEDS: Amitriptyline HCl 25 MG TAB PO SCH (21:07)
[2022-08-18] MEDS: traMADol HCl 50 MG TAB PO PRN (21:20)
[2022-08-19] MEDS: HYDROcodone/Acetaminophen 10/325 mg Tablet PO PRN ×3 (05:30→21:08)
[2022-08-19] MEDS: Levothyroxine Sodium 112 MCG TAB PO SCH (05:32)
[2022-08-19] MEDS: Levothyroxine Sodium 25 MCG TAB PO SCH (05:32)
[2022-08-19] MEDS: [UNRECOGNIZED DRUG - OTHER] PO SCH (08:43)
[2022-08-19] MEDS: TART CHERRY EXTRACT 1200 MG PO SCH (08:43)
[2022-08-19] MEDS: CITRACAL CALCIUM PO SCH (08:43)
[2022-08-19] MEDS: BIOTIN PO SCH (08:44)
[2022-08-19] MEDS: CYANOCOBALAMIN PO SCH (08:44)
[2022-08-19] MEDS: ECHINACEA PO SCH ×3 (08:44→21:10)
[2022-08-19] MEDS: HAIR SKIN AND NAILS PO SCH (08:44)
[2022-08-19] MEDS: Azelastine 137 MCG/Spray 30 ML EA NARE SCH (08:44)
[2022-08-19] MEDS: [UNRECOGNIZED DRUG - OTHER] PO SCH (08:44)
[2022-08-19] MEDS: GOLDENSEAL PO SCH ×3 (08:44→21:10)
[2022-08-19] MEDS: cefTRIAXone\\ROCEPHIN 2 GM in Sodium Chloride 0.9% 100 ML IVPB SCH (08:47)
[2022-08-19] MEDS: Multivitamin W/ Minerals 1 TAB PO SCH (08:48)
[2022-08-19] MEDS: Trospium 20 MG TAB PO SCH ×2 (08:48→21:11)
[2022-08-19] MEDS: Potassium Chloride 20 MEQ TAB PO SCH (08:48)
[2022-08-19] MEDS: Topiramate 25 MG TAB PO SCH ×2 (08:48→21:11)
[2022-08-19] MEDS: Furosemide 40 MG TAB PO SCH (08:49)
[2022-08-19] MEDS: traMADol HCl 50 MG TAB PO PRN (10:33)
[2022-08-19] MEDS: Amitriptyline HCl 25 MG TAB PO SCH (21:11)
[2022-08-20] MEDS: Levothyroxine Sodium 25 MCG TAB PO SCH (05:30)
[2022-08-20] MEDS: Levothyroxine Sodium 112 MCG TAB PO SCH (05:30)
[2022-08-20] MEDS: traMADol HCl 50 MG TAB PO PRN ×2 (05:33→21:06)
[2022-08-20] MEDS: Potassium Chloride 20 MEQ TAB PO SCH (08:50)
[2022-08-20] MEDS: Trospium 20 MG TAB PO SCH ×2 (08:50→21:08)
[2022-08-20] MEDS: Topiramate 25 MG TAB PO SCH ×2 (08:50→21:07)
[2022-08-20] MEDS: Multivitamin W/ Minerals 1 TAB PO SCH (08:51)
[2022-08-20] MEDS: Furosemide 40 MG TAB PO SCH (08:51)
[2022-08-20] MEDS: CYANOCOBALAMIN PO SCH (08:53)
[2022-08-20] MEDS: [UNRECOGNIZED DRUG - OTHER] PO SCH (08:53)
[2022-08-20] MEDS: TART CHERRY EXTRACT 1200 MG PO SCH (08:53)
[2022-08-20] MEDS: BIOTIN PO SCH (08:54)
[2022-08-20] MEDS: GOLDENSEAL PO SCH ×3 (08:54→21:10)
[2022-08-20] MEDS: HAIR SKIN AND NAILS PO SCH (08:54)
[2022-08-20] MEDS: ECHINACEA PO SCH ×3 (08:54→21:10)
[2022-08-20] MEDS: CITRACAL CALCIUM PO SCH (08:55)
[2022-08-20] MEDS: [UNRECOGNIZED DRUG - OTHER] PO SCH (08:55)
[2022-08-20] MEDS: cefTRIAXone\\ROCEPHIN 2 GM in Sodium Chloride 0.9% 100 ML IVPB SCH (08:56)
[2022-08-20] MEDS: Azelastine 137 MCG/Spray 30 ML EA NARE SCH (08:56)
[2022-08-20] MEDS: HYDROcodone/Acetaminophen 10/325 mg Tablet PO PRN ×2 (13:03→18:53)
[2022-08-20] MEDS: Amitriptyline HCl 25 MG TAB PO SCH (21:07)
[2022-08-21] MEDS: HYDROcodone/Acetaminophen 10/325 mg Tablet PO PRN ×3 (05:28→20:27)
[2022-08-21] MEDS: Levothyroxine Sodium 112 MCG TAB PO SCH (05:29)
[2022-08-21] MEDS: Levothyroxine Sodium 25 MCG TAB PO SCH (05:29)
[2022-08-21] MEDS: Multivitamin W/ Minerals 1 TAB PO SCH (08:57)
[2022-08-21] MEDS: Topiramate 25 MG TAB PO SCH ×2 (08:57→20:21)
[2022-08-21] MEDS: Potassium Chloride 20 MEQ TAB PO SCH (08:58)
[2022-08-21] MEDS: Trospium 20 MG TAB PO SCH ×2 (08:58→20:20)
[2022-08-21] MEDS: Furosemide 40 MG TAB PO SCH (08:58)
[2022-08-21] MEDS: cefTRIAXone\\ROCEPHIN 2 GM in Sodium Chloride 0.9% 100 ML IVPB SCH (08:59)
[2022-08-21] MEDS: Azelastine 137 MCG/Spray 30 ML EA NARE SCH (09:00)
[2022-08-21] MEDS: [UNRECOGNIZED DRUG - OTHER] PO SCH (09:02)
[2022-08-21] MEDS: [UNRECOGNIZED DRUG - OTHER] PO SCH (09:02)
[2022-08-21] MEDS: ECHINACEA PO SCH ×3 (09:02→21:00)
[2022-08-21] MEDS: CITRACAL CALCIUM PO SCH (09:02)
[2022-08-21] MEDS: HAIR SKIN AND NAILS PO SCH (09:02)
[2022-08-21] MEDS: TART CHERRY EXTRACT 1200 MG PO SCH (09:02)
[2022-08-21] MEDS: CYANOCOBALAMIN PO SCH (09:02)
[2022-08-21] MEDS: GOLDENSEAL PO SCH ×3 (09:02→21:00)
[2022-08-21] MEDS: BIOTIN PO SCH (09:02)
[2022-08-21] MEDS: Amitriptyline HCl 25 MG TAB PO SCH (20:21)
[2022-08-21] MEDS: Calcium Carbonate 500 MG ChewTAB PO PRN (20:21)
[2022-08-21] MEDS: Prochlorperazine Maleate 5 MG TAB PO PRN (21:01)
[2022-08-22 04:57] LABS: Anion Gap 11 mmol/L (10-20); BUN (Urea Nitrogen) 17 mg/dL (7.0-18.7); CRP (Inflammatory) 1.59 mg/dL (= or < 0.5); Calc. Creatinine Clearance 141 mL/min (70-130); Calcium 9.3 mg/dL (7.8-10.44); Carbon Dioxide 24 mmol/L (22-29); Chloride 109 mmol/L (98-107); Estimated GFR 78; Glucose 89 mg/dL (70-105); Potassium 3.4 mmol/L (3.5-5.1); Sodium 141 mmol/L (136-145)
[2022-08-22 04:58] LABS: #Basophils 0.1 thou/uL (0.0-0.2); #Eosinphils 0.3 thou/uL (0.0-0.7); #Lymphocytes 2.4 thou/uL (1.20-3.40); #Monocytes 0.6 thou/uL (0.11-0.59); #Neutrophils 2.5 thou/uL (1.40-6.50); %Basophils 1.3 % (0.0-1.0); %Eosinophils 5.9 % (0.0-10.0); %Lymphocytes 40.6 % (21.0-51.0); %Monocytes 10.1 % (0.0-10.0); %Neutrophils 42.1 % (42.0-75.0); Hemoglobin 11.6 g/dL (12.0-16.0); Mean Corpuscular HGB CONC 32.2 g/dL (32.0-36.0); Mean Corpuscular Hemoglobin 28.3 pg (27.0-31.0); Mean Platelet Volume 7.3 fL (7.4-10.4); Platelet Count 251 10x3/uL (130-400); RBC Distribution Width 14.7 % (11.5-14.5); Red Blood Cell (RBC) Count 4.11 mill/uL (4.20-5.40); White Blood Cell (WBC) Count 5.9 10x3/uL (4.8-10.8)
[2022-08-22] MEDS: Levothyroxine Sodium 25 MCG TAB PO SCH (05:12)
[2022-08-22] MEDS: Levothyroxine Sodium 112 MCG TAB PO SCH (05:12)
[2022-08-22] MEDS: HYDROcodone/Acetaminophen 10/325 mg Tablet PO PRN ×3 (05:18→18:20)
[2022-08-22] MEDS: [UNRECOGNIZED DRUG - OTHER] PO SCH (09:15)
[2022-08-22] MEDS: CITRACAL CALCIUM PO SCH (09:15)
[2022-08-22] MEDS: Trospium 20 MG TAB PO SCH ×2 (09:16→20:35)
[2022-08-22] MEDS: Topiramate 25 MG TAB PO SCH ×2 (09:16→20:35)
[2022-08-22] MEDS: Furosemide 40 MG TAB PO SCH (09:17)
[2022-08-22] MEDS: cefTRIAXone\\ROCEPHIN 2 GM in Sodium Chloride 0.9% 100 ML IVPB SCH (09:17)
[2022-08-22] MEDS: [UNRECOGNIZED DRUG - OTHER] PO SCH (09:18)
[2022-08-22] MEDS: CYANOCOBALAMIN PO SCH (09:18)
[2022-08-22] MEDS: Azelastine 137 MCG/Spray 30 ML EA NARE SCH (09:19)
[2022-08-22] MEDS: TART CHERRY EXTRACT 1200 MG PO SCH (09:20)
[2022-08-22] MEDS: GOLDENSEAL PO SCH ×3 (09:20→20:34)
[2022-08-22] MEDS: ECHINACEA PO SCH ×3 (09:20→20:34)
[2022-08-22] MEDS: BIOTIN PO SCH (09:20)
[2022-08-22] MEDS: HAIR SKIN AND NAILS PO SCH (09:20)
[2022-08-22] MEDS: Multivitamin W/ Minerals 1 TAB PO SCH (09:22)
[2022-08-22] MEDS: Potassium Chloride 20 MEQ TAB PO SCH ×2 (09:39→17:00)
[2022-08-22] MEDS ORDERED: Potassium Chloride 20 MEQ TAB PO SCH (18:30)
[2022-08-22] MEDS: Amitriptyline HCl 25 MG TAB PO SCH (20:35)
[2022-08-22] MEDS: traMADol HCl 50 MG TAB PO PRN (20:36)
[2022-08-23] MEDS: Levothyroxine Sodium 112 MCG TAB PO SCH (05:36)
[2022-08-23] MEDS: Levothyroxine Sodium 25 MCG TAB PO SCH (05:36)
[2022-08-23] MEDS: CITRACAL CALCIUM PO SCH (09:08)
[2022-08-23] MEDS: [UNRECOGNIZED DRUG - OTHER] PO SCH (09:08)
[2022-08-23] MEDS: BIOTIN PO SCH (09:09)
[2022-08-23] MEDS: GOLDENSEAL PO SCH ×3 (09:09→20:40)
[2022-08-23] MEDS: HAIR SKIN AND NAILS PO SCH (09:09)
[2022-08-23] MEDS: ECHINACEA PO SCH ×3 (09:09→20:40)
[2022-08-23] MEDS: TART CHERRY EXTRACT 1200 MG PO SCH (09:09)
[2022-08-23] MEDS: Azelastine 137 MCG/Spray 30 ML EA NARE SCH (09:10)
[2022-08-23] MEDS: CYANOCOBALAMIN PO SCH (09:10)
[2022-08-23] MEDS: [UNRECOGNIZED DRUG - OTHER] PO SCH (09:10)
[2022-08-23] MEDS: Furosemide 40 MG TAB PO SCH (09:11)
[2022-08-23] MEDS: Multivitamin W/ Minerals 1 TAB PO SCH (09:12)
[2022-08-23] MEDS: Potassium Chloride 20 MEQ TAB PO SCH ×2 (09:12→17:08)
[2022-08-23] MEDS: Trospium 20 MG TAB PO SCH ×2 (09:12→20:39)
[2022-08-23] MEDS: Topiramate 25 MG TAB PO SCH ×2 (09:12→20:39)
[2022-08-23] MEDS: cefTRIAXone\\ROCEPHIN 2 GM in Sodium Chloride 0.9% 100 ML IVPB SCH (09:13)
[2022-08-23] MEDS: HYDROcodone/Acetaminophen 10/325 mg Tablet PO PRN ×2 (11:16→17:07)
[2022-08-23] MEDS: Amitriptyline HCl 25 MG TAB PO SCH (20:39)
[2022-08-23] MEDS: traMADol HCl 50 MG TAB PO PRN (20:44)
[2022-08-24] MEDS: HYDROcodone/Acetaminophen 10/325 mg Tablet PO PRN ×3 (04:24→20:34)
[2022-08-24] MEDS: Levothyroxine Sodium 25 MCG TAB PO SCH (04:24)
[2022-08-24] MEDS: Levothyroxine Sodium 112 MCG TAB PO SCH (04:24)
[2022-08-24] MEDS: Trospium 20 MG TAB PO SCH ×2 (08:55→20:35)
[2022-08-24] MEDS: Topiramate 25 MG TAB PO SCH ×2 (08:55→20:35)
[2022-08-24] MEDS: Furosemide 40 MG TAB PO SCH (08:56)
[2022-08-24] MEDS: Potassium Chloride 20 MEQ TAB PO SCH ×2 (08:56→18:04)
[2022-08-24] MEDS: Multivitamin W/ Minerals 1 TAB PO SCH (08:56)
[2022-08-24] MEDS: cefTRIAXone\\ROCEPHIN 2 GM in Sodium Chloride 0.9% 100 ML IVPB SCH (08:57)
[2022-08-24] MEDS: ECHINACEA PO SCH ×3 (09:01→20:33)
[2022-08-24] MEDS: TART CHERRY EXTRACT 1200 MG PO SCH (09:01)
[2022-08-24] MEDS: GOLDENSEAL PO SCH ×3 (09:01→20:33)
[2022-08-24] MEDS: [UNRECOGNIZED DRUG - OTHER] PO SCH (09:02)
[2022-08-24] MEDS: Azelastine 137 MCG/Spray 30 ML EA NARE SCH (09:02)
[2022-08-24] MEDS: CYANOCOBALAMIN PO SCH (09:02)
[2022-08-24] MEDS: HAIR SKIN AND NAILS PO SCH (09:02)
[2022-08-24] MEDS: CITRACAL CALCIUM PO SCH (09:02)
[2022-08-24] MEDS: [UNRECOGNIZED DRUG - OTHER] PO SCH (09:02)
[2022-08-24] MEDS: BIOTIN PO SCH (09:02)
[2022-08-24] MEDS: Amitriptyline HCl 25 MG TAB PO SCH (20:35)
[2022-08-25] MEDS: Levothyroxine Sodium 25 MCG TAB PO SCH (05:31)
[2022-08-25] MEDS: Levothyroxine Sodium 112 MCG TAB PO SCH (05:31)
[2022-08-25] MEDS: HYDROcodone/Acetaminophen 10/325 mg Tablet PO PRN ×3 (08:29→21:10)
[2022-08-25] MEDS: cefTRIAXone\\ROCEPHIN 2 GM in Sodium Chloride 0.9% 100 ML IVPB SCH (08:31)
[2022-08-25] MEDS: Topiramate 25 MG TAB PO SCH ×2 (08:32→21:12)
[2022-08-25] MEDS: Potassium Chloride 20 MEQ TAB PO SCH ×2 (08:33→17:49)
[2022-08-25] MEDS: Trospium 20 MG TAB PO SCH ×2 (08:33→21:11)
[2022-08-25] MEDS: Multivitamin W/ Minerals 1 TAB PO SCH (08:33)
[2022-08-25] MEDS: Furosemide 40 MG TAB PO SCH (08:33)
[2022-08-25] MEDS: GOLDENSEAL PO SCH ×3 (08:35→21:14)
[2022-08-25] MEDS: BIOTIN PO SCH (08:35)
[2022-08-25] MEDS: ECHINACEA PO SCH ×3 (08:35→21:14)
[2022-08-25] MEDS: HAIR SKIN AND NAILS PO SCH (08:35)
[2022-08-25] MEDS: CYANOCOBALAMIN PO SCH (08:35)
[2022-08-25] MEDS: [UNRECOGNIZED DRUG - OTHER] PO SCH (08:35)
[2022-08-25] MEDS: TART CHERRY EXTRACT 1200 MG PO SCH (08:36)
[2022-08-25] MEDS: CITRACAL CALCIUM PO SCH (08:36)
[2022-08-25] MEDS: [UNRECOGNIZED DRUG - OTHER] PO SCH (08:36)
[2022-08-25] MEDS: Azelastine 137 MCG/Spray 30 ML EA NARE SCH (08:36)
[2022-08-25] MEDS: Amitriptyline HCl 25 MG TAB PO SCH (21:12)
[2022-08-26] MEDS: Levothyroxine Sodium 25 MCG TAB PO SCH (05:38)
[2022-08-26] MEDS: Levothyroxine Sodium 112 MCG TAB PO SCH (05:38)
[2022-08-26] MEDS: Potassium Chloride 20 MEQ TAB PO SCH ×2 (07:28→17:37)
[2022-08-26] MEDS: HYDROcodone/Acetaminophen 10/325 mg Tablet PO PRN ×2 (07:28→20:53)
[2022-08-26] MEDS ORDERED: Dicyclomine 20 MG TAB PO PRN (08:22)
[2022-08-26] MEDS: cefTRIAXone\\ROCEPHIN 2 GM in Sodium Chloride 0.9% 100 ML IVPB SCH (09:26)
[2022-08-26] MEDS: Trospium 20 MG TAB PO SCH ×2 (09:27→20:53)
[2022-08-26] MEDS: Multivitamin W/ Minerals 1 TAB PO SCH (09:28)
[2022-08-26] MEDS: Furosemide 40 MG TAB PO SCH (09:28)
[2022-08-26] MEDS: Topiramate 25 MG TAB PO SCH ×2 (09:28→20:53)
[2022-08-26] MEDS: ECHINACEA PO SCH ×3 (09:29→23:09)
[2022-08-26] MEDS: GOLDENSEAL PO SCH ×3 (09:29→23:09)
[2022-08-26] MEDS: BIOTIN PO SCH (09:30)
[2022-08-26] MEDS: TART CHERRY EXTRACT 1200 MG PO SCH (09:30)
[2022-08-26] MEDS: Azelastine 137 MCG/Spray 30 ML EA NARE SCH (09:30)
[2022-08-26] MEDS: HAIR SKIN AND NAILS PO SCH (09:30)
[2022-08-26] MEDS: [UNRECOGNIZED DRUG - OTHER] PO SCH (09:30)
[2022-08-26] MEDS: CYANOCOBALAMIN PO SCH (09:30)
[2022-08-26] MEDS: CITRACAL CALCIUM PO SCH (09:31)
[2022-08-26] MEDS: [UNRECOGNIZED DRUG - OTHER] PO SCH (09:31)
[2022-08-26] MEDS: Amitriptyline HCl 25 MG TAB PO SCH (20:53)
[2022-08-27] MEDS: Levothyroxine Sodium 112 MCG TAB PO SCH (05:08)
[2022-08-27] MEDS: Levothyroxine Sodium 25 MCG TAB PO SCH (05:14)
[2022-08-27] MEDS: cefTRIAXone\\ROCEPHIN 2 GM in Sodium Chloride 0.9% 100 ML IVPB SCH (09:54)
[2022-08-27] MEDS: Multivitamin W/ Minerals 1 TAB PO SCH (09:55)
[2022-08-27] MEDS: Furosemide 40 MG TAB PO SCH (09:55)
[2022-08-27] MEDS: Topiramate 25 MG TAB PO SCH ×2 (09:55→20:21)
[2022-08-27] MEDS: Trospium 20 MG TAB PO SCH ×2 (09:55→20:21)
[2022-08-27] MEDS: GOLDENSEAL PO SCH ×3 (09:56→21:08)
[2022-08-27] MEDS: Azelastine 137 MCG/Spray 30 ML EA NARE SCH (09:56)
[2022-08-27] MEDS: ECHINACEA PO SCH ×3 (09:56→21:08)
[2022-08-27] MEDS: Potassium Chloride 20 MEQ TAB PO SCH ×2 (09:56→16:15)
[2022-08-27] MEDS: [UNRECOGNIZED DRUG - OTHER] PO SCH (09:57)
[2022-08-27] MEDS: TART CHERRY EXTRACT 1200 MG PO SCH (09:57)
[2022-08-27] MEDS: HAIR SKIN AND NAILS PO SCH (09:57)
[2022-08-27] MEDS: [UNRECOGNIZED DRUG - OTHER] PO SCH (09:57)
[2022-08-27] MEDS: CYANOCOBALAMIN PO SCH (09:57)
[2022-08-27] MEDS: CITRACAL CALCIUM PO SCH (09:57)
[2022-08-27] MEDS: BIOTIN PO SCH (09:57)
[2022-08-27] MEDS: HYDROcodone/Acetaminophen 10/325 mg Tablet PO PRN ×2 (10:08→18:56)
[2022-08-27] MEDS: Amitriptyline HCl 25 MG TAB PO SCH (20:21)
[2022-08-27] MEDS: Prochlorperazine Maleate 5 MG TAB PO PRN (21:09)
[2022-08-28] MEDS: Levothyroxine Sodium 112 MCG TAB PO SCH (05:04)
[2022-08-28] MEDS: Levothyroxine Sodium 25 MCG TAB PO SCH (05:04)
[2022-08-28] MEDS: HYDROcodone/Acetaminophen 10/325 mg Tablet PO PRN ×2 (05:45→17:36)
[2022-08-28] MEDS: CITRACAL CALCIUM PO SCH (09:38)
[2022-08-28] MEDS: [UNRECOGNIZED DRUG - OTHER] PO SCH (09:38)
[2022-08-28] MEDS: Acetaminophen 325 MG TAB PO PRN ×2 (09:38→20:25)
[2022-08-28] MEDS: cefTRIAXone\\ROCEPHIN 2 GM in Sodium Chloride 0.9% 100 ML IVPB SCH (09:39)
[2022-08-28] MEDS: Topiramate 25 MG TAB PO SCH ×2 (09:40→20:24)
[2022-08-28] MEDS: Trospium 20 MG TAB PO SCH ×2 (09:40→20:25)
[2022-08-28] MEDS: Multivitamin W/ Minerals 1 TAB PO SCH (09:40)
[2022-08-28] MEDS: Furosemide 40 MG TAB PO SCH (09:41)
[2022-08-28] MEDS: Potassium Chloride 20 MEQ TAB PO SCH ×2 (09:41→16:11)
[2022-08-28] MEDS: [UNRECOGNIZED DRUG - OTHER] PO SCH (09:42)
[2022-08-28] MEDS: TART CHERRY EXTRACT 1200 MG PO SCH (09:42)
[2022-08-28] MEDS: CYANOCOBALAMIN PO SCH (09:42)
[2022-08-28] MEDS: BIOTIN PO SCH (09:43)
[2022-08-28] MEDS: ECHINACEA PO SCH ×3 (09:43→20:25)
[2022-08-28] MEDS: Azelastine 137 MCG/Spray 30 ML EA NARE SCH (09:43)
[2022-08-28] MEDS: HAIR SKIN AND NAILS PO SCH (09:43)
[2022-08-28] MEDS: GOLDENSEAL PO SCH ×3 (09:43→20:25)
[2022-08-28] MEDS: traMADol HCl 50 MG TAB PO PRN ×2 (16:11→22:23)
[2022-08-28] MEDS: Amitriptyline HCl 25 MG TAB PO SCH (20:24)
[2022-08-28] MEDS: Prochlorperazine Maleate 5 MG TAB PO PRN (20:26)
[2022-08-28] MEDS: Calcium Carbonate 500 MG ChewTAB PO PRN (22:26)
[2022-08-29] MEDS: HYDROcodone/Acetaminophen 10/325 mg Tablet PO PRN ×3 (03:30→23:23)
[2022-08-29] MEDS: Levothyroxine Sodium 112 MCG TAB PO SCH (05:30)
[2022-08-29] MEDS: Levothyroxine Sodium 25 MCG TAB PO SCH (05:30)
[2022-08-29] MEDS: cefTRIAXone\\ROCEPHIN 2 GM in Sodium Chloride 0.9% 100 ML IVPB SCH (08:51)
[2022-08-29] MEDS: Topiramate 25 MG TAB PO SCH ×2 (08:52→22:20)
[2022-08-29] MEDS: Trospium 20 MG TAB PO SCH ×2 (08:52→22:22)
[2022-08-29] MEDS: HAIR SKIN AND NAILS PO SCH (08:54)
[2022-08-29] MEDS: Potassium Chloride 20 MEQ TAB PO SCH ×2 (08:54→18:08)
[2022-08-29] MEDS: Multivitamin W/ Minerals 1 TAB PO SCH (08:54)
[2022-08-29] MEDS: Azelastine 137 MCG/Spray 30 ML EA NARE SCH (08:54)
[2022-08-29] MEDS: CYANOCOBALAMIN PO SCH (08:54)
[2022-08-29] MEDS: [UNRECOGNIZED DRUG - OTHER] PO SCH (08:54)
[2022-08-29] MEDS: BIOTIN PO SCH (08:54)
[2022-08-29] MEDS: [UNRECOGNIZED DRUG - OTHER] PO SCH (08:55)
[2022-08-29] MEDS: GOLDENSEAL PO SCH ×3 (08:55→22:23)
[2022-08-29] MEDS: TART CHERRY EXTRACT 1200 MG PO SCH (08:55)
[2022-08-29] MEDS: ECHINACEA PO SCH ×3 (08:55→22:23)
[2022-08-29] MEDS: CITRACAL CALCIUM PO SCH (08:55)
[2022-08-29] MEDS: Furosemide 20 MG TAB PO SCH (10:50)
[2022-08-29] MEDS: Amitriptyline HCl 25 MG TAB PO SCH (22:21)
[2022-08-30] MEDS: Levothyroxine Sodium 112 MCG TAB PO SCH (05:22)
[2022-08-30] MEDS: Levothyroxine Sodium 25 MCG TAB PO SCH (05:22)
[2022-08-30 05:24] LABS: Hemoglobin 11.7 g/dL (12.0-16.0); Platelet Count 260 10x3/uL (130-400)
[2022-08-30] MEDS: Trospium 20 MG TAB PO SCH ×2 (08:21→20:18)
[2022-08-30] MEDS: Furosemide 20 MG TAB PO SCH (08:21)
[2022-08-30] MEDS: Multivitamin W/ Minerals 1 TAB PO SCH (08:22)
[2022-08-30] MEDS: Topiramate 25 MG TAB PO SCH ×2 (08:22→20:17)
[2022-08-30] MEDS: Potassium Chloride 20 MEQ TAB PO SCH ×2 (08:22→16:29)
[2022-08-30] MEDS: cefTRIAXone\\ROCEPHIN 2 GM in Sodium Chloride 0.9% 100 ML IVPB SCH (08:23)
[2022-08-30] MEDS: CITRACAL CALCIUM PO SCH (08:30)
[2022-08-30] MEDS: [UNRECOGNIZED DRUG - OTHER] PO SCH (08:30)
[2022-08-30] MEDS: Azelastine 137 MCG/Spray 30 ML EA NARE SCH (08:33)
[2022-08-30] MEDS: [UNRECOGNIZED DRUG - OTHER] PO SCH (08:34)
[2022-08-30] MEDS: CYANOCOBALAMIN PO SCH (08:34)
[2022-08-30] MEDS: GOLDENSEAL PO SCH ×3 (08:35→20:17)
[2022-08-30] MEDS: ECHINACEA PO SCH ×3 (08:35→20:17)
[2022-08-30] MEDS: BIOTIN PO SCH (08:36)
[2022-08-30] MEDS: HAIR SKIN AND NAILS PO SCH (08:36)
[2022-08-30] MEDS: TART CHERRY EXTRACT 1200 MG PO SCH (08:37)
[2022-08-30] MEDS: HYDROcodone/Acetaminophen 10/325 mg Tablet PO PRN (14:55)
[2022-08-30] MEDS: Amitriptyline HCl 25 MG TAB PO SCH (20:17)
[2022-08-31] MEDS: HYDROcodone/Acetaminophen 10/325 mg Tablet PO PRN ×3 (03:09→18:55)
[2022-08-31] MEDS: Levothyroxine Sodium 25 MCG TAB PO SCH (05:22)
[2022-08-31] MEDS: Levothyroxine Sodium 112 MCG TAB PO SCH (05:22)
[2022-08-31] MEDS: Multivitamin W/ Minerals 1 TAB PO SCH (08:46)
[2022-08-31] MEDS: Potassium Chloride 20 MEQ TAB PO SCH ×2 (08:46→16:51)
[2022-08-31] MEDS: Furosemide 20 MG TAB PO SCH (08:46)
[2022-08-31] MEDS: Topiramate 25 MG TAB PO SCH ×2 (08:46→20:50)
[2022-08-31] MEDS: Trospium 20 MG TAB PO SCH ×2 (08:46→20:50)
[2022-08-31] MEDS: CYANOCOBALAMIN PO SCH (08:47)
[2022-08-31] MEDS: [UNRECOGNIZED DRUG - OTHER] PO SCH (08:47)
[2022-08-31] MEDS: Azelastine 137 MCG/Spray 30 ML EA NARE SCH (08:47)
[2022-08-31] MEDS: ECHINACEA PO SCH ×3 (08:48→20:49)
[2022-08-31] MEDS: TART CHERRY EXTRACT 1200 MG PO SCH (08:48)
[2022-08-31] MEDS: HAIR SKIN AND NAILS PO SCH (08:48)
[2022-08-31] MEDS: BIOTIN PO SCH (08:48)
[2022-08-31] MEDS: GOLDENSEAL PO SCH ×3 (08:48→20:49)
[2022-08-31] MEDS: CITRACAL CALCIUM PO SCH (08:48)
[2022-08-31] MEDS: [UNRECOGNIZED DRUG - OTHER] PO SCH (08:48)
[2022-08-31] MEDS: cefTRIAXone\\ROCEPHIN 2 GM in Sodium Chloride 0.9% 100 ML IVPB SCH (08:56)
[2022-08-31] MEDS: Amitriptyline HCl 25 MG TAB PO SCH (20:49)
[2022-09-01] MEDS: Levothyroxine Sodium 112 MCG TAB PO SCH (05:31)
[2022-09-01] MEDS: Levothyroxine Sodium 25 MCG TAB PO SCH (05:31)
[2022-09-01] MEDS: HYDROcodone/Acetaminophen 10/325 mg Tablet PO PRN ×3 (05:36→20:12)
[2022-09-01] MEDS: Potassium Chloride 20 MEQ TAB PO SCH ×2 (08:22→18:03)
[2022-09-01] MEDS: Trospium 20 MG TAB PO SCH ×2 (08:22→22:09)
[2022-09-01] MEDS: Topiramate 25 MG TAB PO SCH ×2 (08:22→22:09)
[2022-09-01] MEDS: Multivitamin W/ Minerals 1 TAB PO SCH (08:22)
[2022-09-01] MEDS: Furosemide 20 MG TAB PO SCH (08:22)
[2022-09-01] MEDS: Azelastine 137 MCG/Spray 30 ML EA NARE SCH (08:24)
[2022-09-01] MEDS: [UNRECOGNIZED DRUG - OTHER] PO SCH (08:24)
[2022-09-01] MEDS: TART CHERRY EXTRACT 1200 MG PO SCH (08:24)
[2022-09-01] MEDS: CITRACAL CALCIUM PO SCH (08:24)
[2022-09-01] MEDS: [UNRECOGNIZED DRUG - OTHER] PO SCH (08:24)
[2022-09-01] MEDS: CYANOCOBALAMIN PO SCH (08:24)
[2022-09-01] MEDS: BIOTIN PO SCH (08:25)
[2022-09-01] MEDS: HAIR SKIN AND NAILS PO SCH (08:25)
[2022-09-01] MEDS: ECHINACEA PO SCH ×3 (08:25→22:10)
[2022-09-01] MEDS: GOLDENSEAL PO SCH ×3 (08:25→22:10)
[2022-09-01] MEDS: cefTRIAXone\\ROCEPHIN 2 GM in Sodium Chloride 0.9% 100 ML IVPB SCH (08:26)
[2022-09-01] MEDS ORDERED: MEDROXYPROGESTERONE 150 MG/ML IM SCH (09:00)
[2022-09-01] MEDS: Amitriptyline HCl 25 MG TAB PO SCH (22:09)
[2022-09-02] MEDS: Levothyroxine Sodium 25 MCG TAB PO SCH (05:38)
[2022-09-02] MEDS: Levothyroxine Sodium 112 MCG TAB PO SCH (05:38)
[2022-09-02] MEDS: Topiramate 25 MG TAB PO SCH ×2 (09:49→21:47)
[2022-09-02] MEDS: Trospium 20 MG TAB PO SCH ×2 (09:49→21:47)
[2022-09-02] MEDS: Potassium Chloride 20 MEQ TAB PO SCH ×2 (09:49→17:47)
[2022-09-02] MEDS: Furosemide 20 MG TAB PO SCH (09:50)
[2022-09-02] MEDS: Multivitamin W/ Minerals 1 TAB PO SCH (09:50)
[2022-09-02] MEDS: cefTRIAXone\\ROCEPHIN 2 GM in Sodium Chloride 0.9% 100 ML IVPB SCH (09:50)
[2022-09-02] MEDS: ECHINACEA PO SCH ×3 (09:54→21:47)
[2022-09-02] MEDS: GOLDENSEAL PO SCH ×3 (09:54→21:47)
[2022-09-02] MEDS: [UNRECOGNIZED DRUG - OTHER] PO SCH (09:54)
[2022-09-02] MEDS: CITRACAL CALCIUM PO SCH (09:54)
[2022-09-02] MEDS: Azelastine 137 MCG/Spray 30 ML EA NARE SCH (09:54)
[2022-09-02] MEDS: TART CHERRY EXTRACT 1200 MG PO SCH (09:55)
[2022-09-02] MEDS: [UNRECOGNIZED DRUG - OTHER] PO SCH (09:55)
[2022-09-02] MEDS: HAIR SKIN AND NAILS PO SCH (09:55)
[2022-09-02] MEDS: CYANOCOBALAMIN PO SCH (09:55)
[2022-09-02] MEDS: BIOTIN PO SCH (09:55)
[2022-09-02] MEDS: HYDROcodone/Acetaminophen 10/325 mg Tablet PO PRN (17:49)
[2022-09-02] MEDS: Amitriptyline HCl 25 MG TAB PO SCH (21:48)
[2022-09-03] MEDS: Levothyroxine Sodium 25 MCG TAB PO SCH (05:22)
[2022-09-03] MEDS: Levothyroxine Sodium 112 MCG TAB PO SCH (05:22)
[2022-09-03] MEDS: Multivitamin W/ Minerals 1 TAB PO SCH (09:28)
[2022-09-03] MEDS: Trospium 20 MG TAB PO SCH ×2 (09:28→21:46)
[2022-09-03] MEDS: Potassium Chloride 20 MEQ TAB PO SCH ×2 (09:28→17:10)
[2022-09-03] MEDS: Furosemide 20 MG TAB PO SCH (09:28)
[2022-09-03] MEDS: Topiramate 25 MG TAB PO SCH ×2 (09:28→21:46)
[2022-09-03] MEDS: cefTRIAXone\\ROCEPHIN 2 GM in Sodium Chloride 0.9% 100 ML IVPB SCH (09:29)
[2022-09-03] MEDS: [UNRECOGNIZED DRUG - OTHER] PO SCH (09:31)
[2022-09-03] MEDS: Azelastine 137 MCG/Spray 30 ML EA NARE SCH (09:31)
[2022-09-03] MEDS: CYANOCOBALAMIN PO SCH (09:31)
[2022-09-03] MEDS: TART CHERRY EXTRACT 1200 MG PO SCH (09:31)
[2022-09-03] MEDS: GOLDENSEAL PO SCH ×3 (09:31→21:56)
[2022-09-03] MEDS: HAIR SKIN AND NAILS PO SCH (09:31)
[2022-09-03] MEDS: BIOTIN PO SCH (09:31)
[2022-09-03] MEDS: ECHINACEA PO SCH ×3 (09:31→21:56)
[2022-09-03] MEDS: [UNRECOGNIZED DRUG - OTHER] PO SCH (09:32)
[2022-09-03] MEDS: CITRACAL CALCIUM PO SCH (09:32)
[2022-09-03] MEDS: HYDROcodone/Acetaminophen 10/325 mg Tablet PO PRN ×2 (09:51→21:47)
[2022-09-03] MEDS: Prochlorperazine Maleate 5 MG TAB PO PRN (18:06)
[2022-09-03] MEDS: Amitriptyline HCl 25 MG TAB PO SCH (21:46)
[2022-09-04] MEDS: Levothyroxine Sodium 112 MCG TAB PO SCH (04:43)
[2022-09-04] MEDS: Levothyroxine Sodium 25 MCG TAB PO SCH (04:43)
[2022-09-04 05:31] LABS: Hemoglobin 11.5 g/dL (12.0-16.0); Platelet Count 253 10x3/uL (130-400)
[2022-09-04] MEDS: HYDROcodone/Acetaminophen 10/325 mg Tablet PO PRN (10:05)
[2022-09-04] MEDS: Multivitamin W/ Minerals 1 TAB PO SCH (10:09)
[2022-09-04] MEDS: Topiramate 25 MG TAB PO SCH ×2 (10:09→22:05)
[2022-09-04] MEDS: Trospium 20 MG TAB PO SCH ×2 (10:09→22:04)
[2022-09-04] MEDS: Furosemide 20 MG TAB PO SCH (10:10)
[2022-09-04] MEDS: Potassium Chloride 20 MEQ TAB PO SCH ×2 (10:10→17:23)
[2022-09-04] MEDS: cefTRIAXone\\ROCEPHIN 2 GM in Sodium Chloride 0.9% 100 ML IVPB SCH (10:11)
[2022-09-04] MEDS: TART CHERRY EXTRACT 1200 MG PO SCH (10:14)
[2022-09-04] MEDS: [UNRECOGNIZED DRUG - OTHER] PO SCH (10:14)
[2022-09-04] MEDS: CYANOCOBALAMIN PO SCH (10:14)
[2022-09-04] MEDS: BIOTIN PO SCH (10:15)
[2022-09-04] MEDS: ECHINACEA PO SCH ×3 (10:15→22:06)
[2022-09-04] MEDS: HAIR SKIN AND NAILS PO SCH (10:15)
[2022-09-04] MEDS: CITRACAL CALCIUM PO SCH (10:15)
[2022-09-04] MEDS: GOLDENSEAL PO SCH ×3 (10:15→22:06)
[2022-09-04] MEDS: Azelastine 137 MCG/Spray 30 ML EA NARE SCH (10:15)
[2022-09-04] MEDS: [UNRECOGNIZED DRUG - OTHER] PO SCH (10:15)
[2022-09-04 17:14] VITALS: BMI 46.9
[2022-09-04] MEDS: Amitriptyline HCl 25 MG TAB PO SCH (22:04)
[2022-09-05] MEDS: HYDROcodone/Acetaminophen 10/325 mg Tablet PO PRN ×2 (00:25→18:17)
[2022-09-05 05:15] LABS: #Basophils 0.1 thou/uL (0.0-0.2); #Eosinphils 0.3 thou/uL (0.0-0.7); #Lymphocytes 2.5 thou/uL (1.20-3.40); #Monocytes 0.5 thou/uL (0.11-0.59); #Neutrophils 2.5 thou/uL (1.40-6.50); %Basophils 1.2 % (0.0-1.0); %Eosinophils 5.5 % (0.0-10.0); %Lymphocytes 42.1 % (21.0-51.0); %Monocytes 8.4 % (0.0-10.0); %Neutrophils 42.8 % (42.0-75.0); Hemoglobin 11.8 g/dL (12.0-16.0); Mean Corpuscular HGB CONC 32.9 g/dL (32.0-36.0); Mean Corpuscular Hemoglobin 28.8 pg (27.0-31.0); Mean Corpuscular Volume 87.7 fl (78.0-98.0); Mean Platelet Volume 7.3 fL (7.4-10.4); Platelet Count 259 10x3/uL (130-400); RBC Distribution Width 14.2 % (11.5-14.5); Red Blood Cell (RBC) Count 4.11 mill/uL (4.20-5.40); White Blood Cell (WBC) Count 5.9 10x3/uL (4.8-10.8)
[2022-09-05] MEDS: Levothyroxine Sodium 112 MCG TAB PO SCH (05:34)
[2022-09-05] MEDS: Levothyroxine Sodium 25 MCG TAB PO SCH (05:34)
[2022-09-05 05:41] LABS: Anion Gap 13 mmol/L (10-20); BUN (Urea Nitrogen) 15 mg/dL (7.0-18.7); CRP (Inflammatory) 0.75 mg/dL (= or < 0.5); Calc. Creatinine Clearance 150 mL/min (70-130); Carbon Dioxide 21 mmol/L (22-29); Chloride 113 mmol/L (98-107); Estimated GFR 83; Glucose 85 mg/dL (70-105); Potassium 4.5 mmol/L (3.5-5.1); Sodium 142 mmol/L (136-145)
[2022-09-05] MEDS: CITRACAL CALCIUM PO SCH (09:51)
[2022-09-05] MEDS: [UNRECOGNIZED DRUG - OTHER] PO SCH (09:51)
[2022-09-05] MEDS: BIOTIN PO SCH (09:52)
[2022-09-05] MEDS: ECHINACEA PO SCH ×3 (09:52→21:49)
[2022-09-05] MEDS: Azelastine 137 MCG/Spray 30 ML EA NARE SCH (09:52)
[2022-09-05] MEDS: GOLDENSEAL PO SCH ×3 (09:52→21:49)
[2022-09-05] MEDS: HAIR SKIN AND NAILS PO SCH (09:52)
[2022-09-05] MEDS: [UNRECOGNIZED DRUG - OTHER] PO SCH (09:52)
[2022-09-05] MEDS: CYANOCOBALAMIN PO SCH (09:52)
[2022-09-05] MEDS: TART CHERRY EXTRACT 1200 MG PO SCH (09:53)
[2022-09-05] MEDS: Multivitamin W/ Minerals 1 TAB PO SCH (09:53)
[2022-09-05] MEDS: Topiramate 25 MG TAB PO SCH ×2 (09:53→21:49)
[2022-09-05] MEDS: Potassium Chloride 20 MEQ TAB PO SCH ×2 (09:54→15:56)
[2022-09-05] MEDS: Furosemide 20 MG TAB PO SCH (09:54)
[2022-09-05] MEDS: cefTRIAXone\\ROCEPHIN 2 GM in Sodium Chloride 0.9% 100 ML IVPB SCH (09:54)
[2022-09-05] MEDS: Trospium 20 MG TAB PO SCH ×2 (09:54→21:49)
[2022-09-05] MEDS: Amitriptyline HCl 25 MG TAB PO SCH (21:49)
[2022-09-06] MEDS: Levothyroxine Sodium 112 MCG TAB PO SCH (05:21)
[2022-09-06] MEDS: Levothyroxine Sodium 25 MCG TAB PO SCH (05:21)
[2022-09-06 06:13] VITALS: TEMP 98.4
[2022-09-06] MEDS: [UNRECOGNIZED DRUG - OTHER] PO SCH (08:49)
[2022-09-06] MEDS: CITRACAL CALCIUM PO SCH (08:49)
[2022-09-06] MEDS: cefTRIAXone\\ROCEPHIN 2 GM in Sodium Chloride 0.9% 100 ML IVPB SCH (08:50)
[2022-09-06] MEDS: Potassium Chloride 20 MEQ TAB PO SCH (08:50)
[2022-09-06] MEDS: Trospium 20 MG TAB PO SCH (08:50)
[2022-09-06] MEDS: Multivitamin W/ Minerals 1 TAB PO SCH (08:51)
[2022-09-06] MEDS: Topiramate 25 MG TAB PO SCH (08:51)
[2022-09-06] MEDS: HYDROcodone/Acetaminophen 10/325 mg Tablet PO PRN (08:51)
[2022-09-06] MEDS: TART CHERRY EXTRACT 1200 MG PO SCH (08:52)
[2022-09-06] MEDS: ECHINACEA PO SCH (08:52)
[2022-09-06] MEDS: BIOTIN PO SCH (08:52)
[2022-09-06] MEDS: GOLDENSEAL PO SCH (08:52)
[2022-09-06] MEDS: HAIR SKIN AND NAILS PO SCH (08:52)
[2022-09-06] MEDS: Azelastine 137 MCG/Spray 30 ML EA NARE SCH (08:53)
[2022-09-06] MEDS: CYANOCOBALAMIN PO SCH (08:53)
[2022-09-06] MEDS: Furosemide 20 MG TAB PO SCH (08:53)
[2022-09-06] MEDS: [UNRECOGNIZED DRUG - OTHER] PO SCH (08:53)
[2022-09-06 11:24] VITALS: BP 90/66
== END 2022-09-06 12:33 | disposition home or self-care (01) | DRG 560 ==
LOC: BURMED 15:12
PROVIDERS: ADMIT Family Medicine; ATTEND Family Medicine
DX: Z47.1 Aftercare following joint replacement surgery (principal); Z68.42 Body mass index [BMI] 45.0-49.9, adult; Z20.822 Contact with and (suspected) exposure to COVID-19; E66.9 Obesity, unspecified; E03.9 Hypothyroidism, unspecified; F41.9 Anxiety disorder, unspecified; N32.81 Overactive bladder; I89.0 Lymphedema, not elsewhere classified; G89.29 Other chronic pain; R26.89 Other abnormalities of gait and mobility; E87.6 Hypokalemia; R10.13 Epigastric pain; M54.9 Dorsalgia, unspecified; Z96.651 Presence of right artificial knee joint; Z90.49 Acquired absence of other specified parts of digestive tract; Z98.84 Bariatric surgery status; Z88.1 Allergy status to other antibiotic agents; Z88.8 Allergy status to other drugs, medicaments and biological substances; Z88.0 Allergy status to penicillin; Z79.890 Hormone replacement therapy; Z79.899 Other long term (current) drug therapy
CPT/HCPCS: 36415; 80048; 82565; 85014; 85018; 85025; 85049; 85652; 86140; 87811; J0696; J1650; J3490; J7512; Q0164; U0002